=== PATIENT | male | born 1970 | race Caucasian/White ===

== ENCOUNTER 2020-08-17 21:09 | Observation (INO) ==
[2020-08-17] MEDS ORDERED: Isovue-370 500 ML BOTTLE IVP ONE (21:24)
[2020-08-17 22:04] LABS: Basophils # 0.1 K/mcL (0.0-0.2); Basophils % 0.3 %; Hematocrit 46.5 % (37.5-50.1); Hemoglobin 16.3 g/dL (12.9-16.9); Immature Granulocytes % 0.5 % (0-4); Lymphocytes # 2.1 K/mcL (0.6-4.6); Lymphocytes % 11.4 %; Mean Corpuscular HGB Conc 35.1 g/dL (31.6-35.5); Mean Corpuscular Hemoglobin 31.5 pg (28.0-33.3); Mean Corpuscular Volume 89.8 fL (83.0-100.0); Mean Platelet Volume 10.2 fL (9.4-12.4); Monocytes # 1.3 K/mcL (0.0-1.3); Monocytes % 6.9 %; Platelet Count 264 K/mcL (140-400); Red Blood Count 5.18 M/mcL (4.19-5.50); Red Cell Distribution Width 12.5 % (11.5-14.5); Segmented Neutrophils % 80.9 %; White Blood Count 18.5 K/mcL (4.3-11.1)
[2020-08-17 22:11] LABS: INR 1.1; Prothrombin Time 12.4 Seconds (9.4-12.1)
[2020-08-17 22:14] LABS: Activated Partial Thrombo Time 29.1 Seconds (26.0-36.0)
[2020-08-17 22:26] LABS: Alanine Aminotransferase 13 Units/L (7-52); Albumin 4.6 g/dL (3.5-5.7); Albumin/Globulin Ratio 1.6 (1.1-2.2); Alkaline Phosphatase 87 Units/L (34-104); Aspartate Amino Transferase 18 Units/L (13-39); BUN/Creatinine Ratio 17 (6-26); Bilirubin,Direct 0.1 mg/dL (0.0-0.2); Bilirubin,Indirect 0.7 mg/dL (0.0-1.0); Bilirubin,Total 0.8 mg/dL (0.3-1.0); Blood Urea Nitrogen 15 mg/dL (6-20); Calcium 9.4 mg/dL (8.6-10.3); Carbon Dioxide 22 mEq/L (23-29); Chloride 101 mEq/L (98-107); Globulin 2.8 g/dL (2.4-3.5); Glucose 116 mg/dL (70-105); Lipase 60 Units/L (11-82); Osmolality,Calculated 282 (280-300); Potassium 3.6 mEq/L (3.5-5.1); Sodium 135 mEq/L (136-145); Total Protein 7.4 g/dL (6.4-8.9); Troponin I 0.03 ng/mL (< 0.04); eGFR For African Americans > 60 (> 60); eGFR For Non-African Americans > 60 (> 60)
[2020-08-18] MEDS ORDERED: 0.9 % Sodium Chloride 1,000 ML IVC ONE (00:02)
[2020-08-18] MEDS ORDERED: Naloxone 0.4 MG/ML INJ IVP PRN (00:29)
[2020-08-18] MEDS ORDERED: Ondansetron 4 MG/2 ML VIAL IVP PRN (00:29)
[2020-08-18] MEDS ORDERED: Acetaminophen 325 MG TABLET PO PRN (00:29)
[2020-08-18 02:47] LABS: Basophils # 0.1 K/mcL (0.0-0.2); Basophils % 0.4 %; Eosinophils % 0.1 %; Hematocrit 44.5 % (37.5-50.1); Hemoglobin 15.2 g/dL (12.9-16.9); Immature Granulocytes % 0.4 % (0-4); Lymphocytes # 2.4 K/mcL (0.6-4.6); Lymphocytes % 14.7 %; Mean Corpuscular HGB Conc 34.2 g/dL (31.6-35.5); Mean Corpuscular Hemoglobin 31.2 pg (28.0-33.3); Mean Corpuscular Volume 91.4 fL (83.0-100.0); Monocytes # 1.4 K/mcL (0.0-1.3); Monocytes % 8.7 %; Neutrophils # 12.2 K/mcL (1.6-8.9); Platelet Count 241 K/mcL (140-400); Red Blood Count 4.87 M/mcL (4.19-5.50); Red Cell Distribution Width 12.8 % (11.5-14.5); Segmented Neutrophils % 75.7 %; White Blood Count 16.2 K/mcL (4.3-11.1)
[2020-08-18 03:09] LABS: BUN/Creatinine Ratio 17 (6-26); Blood Urea Nitrogen 15 mg/dL (6-20); Carbon Dioxide 22 mEq/L (23-29); Chloride 103 mEq/L (98-107); Chol/HDL Ratio 3.2 (0-4.9); Cholesterol 156 mg/dL (< 200); Glucose 106 mg/dL (70-105); HDL Cholesterol 49 mg/dL (40-59); LDL Cholesterol,Calculated 84 mg/dL (< 100); Magnesium 1.9 mg/dL (1.6-2.6); Osmolality,Calculated 281 (280-300); Phosphorous 3.3 mg/dL (2.7-4.5); Potassium 3.6 mEq/L (3.5-5.1); Sodium 135 mEq/L (136-145); Triglycerides 115 mg/dL (< 150); eGFR For African Americans > 60 (> 60); eGFR For Non-African Americans > 60 (> 60)
[2020-08-18] MEDS ORDERED: Nitroglycerin 0.4 MG TAB.SUBL SL PRN (03:09)
[2020-08-18] MEDS ORDERED: *HR* Labetalol 20 MG/4 ML SYRINGE IVP ONE (03:13)
[2020-08-18] MEDS ORDERED: Isovue-370 500 ML BOTTLE IVP ONE (03:39)
[2020-08-18] MEDS ORDERED: Ringers Solution, Lactated 1,000 ML IVC ONE (03:41)
[2020-08-18 05:31] LABS: Estimated Average Glucose 114 mg/dl; Hemoglobin A1C 5.6 %
[2020-08-18] MEDS: Piperacillin/Tazobactam 3.375 GM in 0.9 % Sodium Chloride Mini Bag 100 ML IVPB SCH ×2 (05:43→17:13)
[2020-08-18] MEDS ORDERED: Perflutren Lipid Microsphere 1.3 ML in 0.9 % Sodium Chloride 8.7 ML IVP PRN (08:27)
[2020-08-18] MEDS ORDERED: *HR* HYDROmorphone (PF) 1 MG/ML SYRINGE IVP PRN (08:34)
[2020-08-18] MEDS: 0.9 % Sodium Chloride 1,000 ML IVC SCH ×2 (09:20→21:39)
[2020-08-18] MEDS: Aspirin 81 MG TAB.CHEW PO SCH (14:28)
[2020-08-18] MEDS: Metoprolol XL (24 HR) Succ 25 MG TAB.ER.24H PO SCH (14:28)
[2020-08-18] MEDS: *HR* HYDROmorphone (PF) 1 MG/ML SYRINGE IVP PRN ×2 (15:12→21:40)
[2020-08-18] MEDS: Nicotine 21 MG PATCH.TD24 TD SCH (17:17)
[2020-08-19 03:37] LABS: Hematocrit 38.7 % (37.5-50.1); Mean Corpuscular HGB Conc 33.3 g/dL (31.6-35.5); Mean Platelet Volume 10.2 fL (9.4-12.4); Platelet Count 221 K/mcL (140-400); Red Blood Count 4.16 M/mcL (4.19-5.50); White Blood Count 8.2 K/mcL (4.3-11.1)
[2020-08-19 03:41] LABS: Hemoglobin 12.9 g/dL (12.9-16.9)
[2020-08-19 04:01] LABS: Alanine Aminotransferase 10 Units/L (7-52); Albumin 3.7 g/dL (3.5-5.7); Albumin/Globulin Ratio 1.5 (1.1-2.2); Alkaline Phosphatase 60 Units/L (34-104); Aspartate Amino Transferase 15 Units/L (13-39); BUN/Creatinine Ratio 19 (6-26); Bilirubin,Total 0.7 mg/dL (0.3-1.0); Blood Urea Nitrogen 14 mg/dL (6-20); Calcium 8.3 mg/dL (8.6-10.3); Carbon Dioxide 21 mEq/L (23-29); Chloride 107 mEq/L (98-107); Globulin 2.4 g/dL (2.4-3.5); Glucose 83 mg/dL (70-105); Osmolality,Calculated 284 (280-300); Potassium 3.5 mEq/L (3.5-5.1); Sodium 137 mEq/L (136-145); Total Protein 6.1 g/dL (6.4-8.9); eGFR For African Americans > 60 (> 60); eGFR For Non-African Americans > 60 (> 60)
[2020-08-19] MEDS: *HR* HYDROmorphone (PF) 1 MG/ML SYRINGE IVP PRN ×4 (05:15→21:58)
[2020-08-19] MEDS: Piperacillin/Tazobactam 3.375 GM in 0.9 % Sodium Chloride Mini Bag 100 ML IVPB SCH ×2 (05:32→17:50)
[2020-08-19] MEDS ORDERED: Famotidine 20 MG/2 ML VIAL ONE (08:24)
[2020-08-19] MEDS ORDERED: Acetaminophen IV 1,000 MG/100 ML BAG IVPB ONE (08:24)
[2020-08-19] MEDS ORDERED: Lidocaine HCL 4 ML Topical Solution (Laryng-O-Jet Kit Sterile Pak) TP ONE (08:24)
[2020-08-19] MEDS ORDERED: *HR* Succinylcholine 200 MG/10 ML VIAL IVP ONE (08:26)
[2020-08-19] MEDS ORDERED: *HR* FentaNYL (PF) 100 MCG/2 ML VIAL ONE (08:30)
[2020-08-19] MEDS ORDERED: *HR* Propofol 200 MG/20 ML VIAL IVP ONE (08:30)
[2020-08-19] MEDS ORDERED: *HR* Midazolam HCl 2 MG/2 ML VIAL ONE (08:30)
[2020-08-19] MEDS ORDERED: *HR* HYDROMORPHONE 2 MG/ML VIAL ONE (08:30)
[2020-08-19] MEDS ORDERED: *HR* Magnesium Sulfate 1 GM/2 ML VIAL ONE (08:31)
[2020-08-19] MEDS ORDERED: Lidocaine -MPF 2% 2 ML VIAL ONE (08:31)
[2020-08-19] MEDS ORDERED: Ondansetron 4 MG/2 ML VIAL ONE (08:31)
[2020-08-19] MEDS ORDERED: Sugammadex Sodium 200 MG/2 ML VIAL IV ONE ×2 (08:31→09:35)
[2020-08-19] MEDS ORDERED: *HR* Rocuronium Bromide 50 MG/5 ML VIAL ONE (08:31)
[2020-08-19] MEDS ORDERED: Albumin Human 5% 12.5 GM/250 ML IV.SOLN ONE (08:37)
[2020-08-19] MEDS: Nicotine 21 MG PATCH.TD24 TD SCH ×2 (08:47→13:58)
[2020-08-19] MEDS: Aspirin 81 MG TAB.CHEW PO SCH (08:47)
[2020-08-19] MEDS: Metoprolol XL (24 HR) Succ 25 MG TAB.ER.24H PO SCH (08:47)
[2020-08-19] MEDS ORDERED: *HR* Labetalol 20 MG/4 ML SYRINGE IVP ONE (09:29)
[2020-08-19] MEDS ORDERED: Ketorolac 30 MG/ML VIAL ONE (09:35)
[2020-08-19] MEDS ORDERED: Ringers Solution, Lactated 1,000 ML ONE (10:16)
[2020-08-19] MEDS ORDERED: Perflutren Lipid Microsphere 1.3 ML in 0.9 % Sodium Chloride 8.7 ML IVP PRN (11:26)
[2020-08-19] MEDS ORDERED: Nitroglycerin 0.4 MG TAB.SUBL SL PRN (11:26)
[2020-08-19] MEDS ORDERED: Naloxone 0.4 MG/ML INJ IVP PRN (11:26)
[2020-08-19] MEDS ORDERED: Ondansetron 4 MG/2 ML VIAL IVP PRN (11:26)
[2020-08-19] MEDS ORDERED: Acetaminophen 325 MG TABLET PO PRN (11:26)
[2020-08-19] MEDS: 0.9 % Sodium Chloride 1,000 ML IVC SCH (13:52)
[2020-08-19] MEDS: lisinopriL 10 MG TABLET PO SCH (17:54)
[2020-08-19] MEDS ORDERED: Morphine Sulfate 2 MG/ML SYRINGE IVP ONE (23:31)
[2020-08-20] MEDS ORDERED: Ketorolac 30 MG/ML VIAL IVP ONE (00:08)
[2020-08-20] MEDS ORDERED: *HR* LORazepam 2 MG/ML VIAL IVP ONE (00:08)
[2020-08-20 00:37] LABS: Basophils % 0.3 %; Hematocrit 39.5 % (37.5-50.1); Hemoglobin 13.7 g/dL (12.9-16.9); Immature Granulocytes % 0.2 % (0-4); Lymphocytes % 17.1 %; Mean Corpuscular HGB Conc 34.7 g/dL (31.6-35.5); Mean Corpuscular Hemoglobin 31.6 pg (28.0-33.3); Mean Corpuscular Volume 91.2 fL (83.0-100.0); Mean Platelet Volume 10.3 fL (9.4-12.4); Monocytes % 8.8 %; Neutrophils # 8.4 K/mcL (1.6-8.9); Platelet Count 248 K/mcL (140-400); Red Blood Count 4.33 M/mcL (4.19-5.50); Red Cell Distribution Width 12.4 % (11.5-14.5); Segmented Neutrophils % 73.6 %; White Blood Count 11.4 K/mcL (4.3-11.1)
[2020-08-20 00:49] LABS: Alanine Aminotransferase 9 Units/L (7-52); Albumin 4.1 g/dL (3.5-5.7); Albumin/Globulin Ratio 1.4 (1.1-2.2); Alkaline Phosphatase 62 Units/L (34-104); Aspartate Amino Transferase 14 Units/L (13-39); BUN/Creatinine Ratio 11 (6-26); Bilirubin,Total 0.5 mg/dL (0.3-1.0); Blood Urea Nitrogen 10 mg/dL (6-20); Calcium 8.9 mg/dL (8.6-10.3); Carbon Dioxide 21 mEq/L (23-29); Chloride 107 mEq/L (98-107); Glucose 93 mg/dL (70-105); Osmolality,Calculated 287 (280-300); Potassium 3.5 mEq/L (3.5-5.1); Sodium 139 mEq/L (136-145); Total Protein 7.1 g/dL (6.4-8.9); eGFR For African Americans > 60 (> 60); eGFR For Non-African Americans > 60 (> 60)
[2020-08-20] MEDS ORDERED: Isovue-370 500 ML BOTTLE IVP ONE (00:56)
[2020-08-20] MEDS: tiZANidine 4 MG TABLET PO PRN ×2 (01:29→07:48)
[2020-08-20] MEDS: 0.9 % Sodium Chloride 1,000 ML IVC SCH ×2 (03:49→06:36)
[2020-08-20] MEDS ORDERED: Morphine Sulfate 2 MG/ML SYRINGE IVP PRN (04:00)
[2020-08-20] MEDS: Piperacillin/Tazobactam 3.375 GM in 0.9 % Sodium Chloride Mini Bag 100 ML IVPB SCH (06:09)
[2020-08-20] MEDS: lisinopriL 10 MG TABLET PO SCH (07:48)
[2020-08-20] MEDS: Nicotine 21 MG PATCH.TD24 TD SCH (07:51)
[2020-08-20 07:55] LABS: Hematocrit 36.7 % (37.5-50.1); Hemoglobin 12.5 g/dL (12.9-16.9); Mean Corpuscular HGB Conc 34.1 g/dL (31.6-35.5); Mean Corpuscular Hemoglobin 31.5 pg (28.0-33.3); Mean Corpuscular Volume 92.4 fL (83.0-100.0); Mean Platelet Volume 10.5 fL (9.4-12.4); Platelet Count 225 K/mcL (140-400); Red Blood Count 3.97 M/mcL (4.19-5.50); Red Cell Distribution Width 12.5 % (11.5-14.5); White Blood Count 10.5 K/mcL (4.3-11.1)
[2020-08-20 08:24] LABS: BUN/Creatinine Ratio 12 (6-26); Blood Urea Nitrogen 9 mg/dL (6-20); Calcium 8.5 mg/dL (8.6-10.3); Carbon Dioxide 24 mEq/L (23-29); Chloride 107 mEq/L (98-107); Glucose 89 mg/dL (70-105); Osmolality,Calculated 284 (280-300); Potassium 3.2 mEq/L (3.5-5.1); Sodium 138 mEq/L (136-145); eGFR For African Americans > 60 (> 60); eGFR For Non-African Americans > 60 (> 60)
[2020-08-20] MEDS ORDERED: Aspirin 81 MG TAB.CHEW PO SCH (09:00)
[2020-08-20] MEDS ORDERED: Metoprolol XL (24 HR) Succ 25 MG TAB.ER.24H PO SCH (09:00)
[2020-08-20 10:51] VITALS: BP 133/81
== END 2020-08-20 15:04 | disposition home or self-care (01) ==
LOC: 3BNU 21:09 → EMEROOARM 21:09 → SUATTDRO 08-18 01:02 → 3BNU 08-18 02:15
PROVIDERS: ADMIT Internal Medicine; ATTEND Nurse Practitioner